=== PATIENT | female | born 1955 | race Caucasian/White ===

== ENCOUNTER 2021-09-18 22:00 | Emergency (ER) | payer SELFPAY ==
[~2021-09-18] VITALS: Ht 157.5 cm; Wt 95.3 kg
[2021-09-18] MEDS ORDERED: ACETAMINOPHEN 500 MG TAB PO ONE (22:15)
[2021-09-19 02:09] VITALS: BP 115/55
== END 2021-09-19 02:10 | disposition home or self-care (01) ==
LOC: ER 22:00
DX: U07.1 COVID-19 (principal)
CPT/HCPCS: 36415; 87426

== ENCOUNTER 2021-09-21 13:02 | Inpatient (IN) | payer MEDICAID ==
[~2021-09-21] VITALS: Ht 160 cm; Wt 95.7 kg
[2021-09-21] MEDS ORDERED: ZINC SULFATE 220mg CAP or TAB PO ONE (13:15)
[2021-09-21] MEDS ORDERED: methylPREDNISolone SOD SUCC 125 MG/2 ML VL IV ONE (13:15)
[2021-09-21] MEDS ORDERED: CHOLECALCIFEROL (VITD3) 2,000 UNIT CAP/TAB PO ONE (13:15)
[2021-09-21] MEDS ORDERED: ASCORBIC ACID 500 MG TAB PO ONE (13:15)
[2021-09-21 15:11] LABS: Basophils # (auto) 0 10 ^3/uL (0-0.2); Basophils % (auto) 0.3 % (0.0-2.0); Eosinophils # (auto) 0 10 ^3/uL (0-0.8); Hematocrit 41.4 % (36.0-46.0); Hemoglobin 13.5 g/dL (12.2-16.2); Lymphocytes # (auto) 0.7 10 ^3/uL (0.4-5.4); Lymphocytes % (auto) 22.5 % (10.0-50.0); Mean Corpuscular Hemoglobin 26.1 pg (28.0-32.0); Mean Corpuscular Hgb Conc. 32.6 g/dL (32.0-36.0); Mean Corpuscular Volume 80.2 fL (80.0-100.0); Monocytes # (auto) 0.2 10 ^3/uL (0-1.3); Monocytes % (auto) 5.2 % (0.0-12.0); Neutrophils # (auto) 2.3 10 ^3/uL (1.6-8.6); Nucleated Red Blood Cells % 0.1 %; Red Blood Cells 5.17 10^6/uL (4.0-5.20); Red Cell Distribution Width 14.3 % (11.8-14.3); White Blood Cell 3.2 10^3/uL (4.4-10.8)
[2021-09-21 15:20] LABS: Calcium 8.1 mg/dL (8.5-10.1); Magnesium 2.9 mg/dL (1.6-2.6); Potassium 3.5 mmol/L (3.5-5.1)
[2021-09-21 15:29] LABS: Bilirubin, Total 0.4 mg/dL (0.2-1.0); CRP High Sensitivity 12.2 mg/dL (< 0.3); Total Protein 7.6 g/dL (6.4-8.2)
[2021-09-21] MEDS ORDERED: ACETAMINOPHEN 500 MG TAB PO PRN (17:30)
[2021-09-21] MEDS ORDERED: DOCUSATE SOD 100 MG CAP PO PRN (17:30)
[2021-09-21] MEDS ORDERED: SODIUM CHLORIDE 0.9% 1,000 ML IV SCH (17:30)
[2021-09-21] MEDS ORDERED: MORPHINE SULFATE INJECTION 2 MG/ML SYRG IV PRN ×2 (17:30)
[2021-09-21] MEDS ORDERED: LORazepam 0.5 MG TAB PO PRN (17:30)
[2021-09-21] MEDS ORDERED: REMDESIVIR PER PHARMACY 0 ML IV SCH (17:30)
[2021-09-21] MEDS ORDERED: NITROGLYCERIN 0.4 MG SL TAB SL PRN (17:30)
[2021-09-21] MEDS ORDERED: ACETAMINOPHEN 325 MG TAB PO PRN (17:30)
[2021-09-21] MEDS ORDERED: ONDANSETRON HCL 4 MG/2 ML VIAL IV PRN (17:30)
[2021-09-21] MEDS ORDERED: cefTRIAXone 1GM/50ML D5W 50 ML IV ONE (17:30)
[2021-09-21] MEDS ORDERED: hydrALAZINE HCL 20 MG/ML VL IV PRN (18:00)
[2021-09-21] MEDS ORDERED: DEXTROSE (50%) 50ML SYRG IV PRN (18:00)
[2021-09-21] MEDS: amLODIPine BESYLATE 5 MG TAB PO SCH (18:10)
[2021-09-21] MEDS: cefTRIAXone 1GM/50ML D5W 50 ML IV SCH (18:10)
[2021-09-21] MEDS ORDERED: FAMOTIDINE (10MG/ML) 2ML VL IV SCH ×2 (18:15→18:30)
[2021-09-21] MEDS ORDERED: REMDESIVIR 200 MG in NS 210ml LOADING DOSE ADULT IV ONE (20:00)
[2021-09-21 20:21] VITALS: BP 146/93
[2021-09-21 20:25] VITALS: BP 145/79
[2021-09-21 20:37] LABS: Cholesterol 113 mg/dL (< 200)
[2021-09-21 20:47] LABS: HDL Cholesterol 39 mg/dL (40-59); LDL Cholesterol 67 mg/dL (< 100); Triglycerides 89 mg/dL (< 150)
[2021-09-21] MEDS: ENOXAPARIN SOD 40 MG/0.4 ML SYRINGE SC SCH (22:12)
[2021-09-21] MEDS: AZITHROMYCIN 500MG/ 250ML 250 ML IV SCH (22:12)
[2021-09-21] MEDS: ACCU-CHEK COMFORT CURVE STRIP VI SCH (22:12)
[2021-09-21] MEDS: InsuLIN REG 1unit/0.01ml Soln (100units/ml) SC SCH (22:24)
[2021-09-21] MEDS: BUDESONIDE (INHALATION) 180 MCG IH IN SCH (22:25)
[2021-09-21] MEDS: ALBUTEROL SULF HFA 90MCG INH 200DOSE IN PRN (22:25)
[2021-09-22 05:30] VITALS: BP 142/76
[2021-09-22] MEDS: ALBUTEROL SULF HFA 90MCG INH 200DOSE IN PRN ×2 (05:43→22:46)
[2021-09-22] MEDS: BUDESONIDE (INHALATION) 180 MCG IH IN SCH ×2 (05:43→21:24)
[2021-09-22] MEDS: InsuLIN REG 1unit/0.01ml Soln (100units/ml) SC SCH ×4 (06:10→21:11)
[2021-09-22] MEDS: ACCU-CHEK COMFORT CURVE STRIP VI SCH ×4 (06:10→20:50)
[2021-09-22 06:29] LABS: Basophils # (auto) 0 10 ^3/uL (0-0.2); Eosinophils # (auto) 0 10 ^3/uL (0-0.8); Lymphocytes # (auto) 0.5 10 ^3/uL (0.4-5.4); Monocytes # (auto) 0.2 10 ^3/uL (0-1.3); Neutrophils # (auto) 1.4 10 ^3/uL (1.6-8.6); Nucleated Red Blood Cells % 0.3 %
[2021-09-22 06:32] LABS: Basophils % (auto) 0.1 % (0.0-2.0); Hematocrit 40.4 % (36.0-46.0); Hemoglobin 13.5 g/dL (12.2-16.2); Lymphocytes % (auto) 23.2 % (10.0-50.0); Mean Corpuscular Hemoglobin 26.7 pg (28.0-32.0); Mean Corpuscular Hgb Conc. 33.3 g/dL (32.0-36.0); Mean Corpuscular Volume 79.9 fL (80.0-100.0); Monocytes % (auto) 8.1 % (0.0-12.0); Neutrophils % (auto) 68.6 % (37.0-80.0); Red Blood Cells 5.05 10^6/uL (4.0-5.20); Red Cell Distribution Width 14.4 % (11.8-14.3); White Blood Cell 2.1 10^3/uL (4.4-10.8)
[2021-09-22 06:51] LABS: Potassium 3.8 mmol/L (3.5-5.1)
[2021-09-22 06:58] LABS: Albumin 2.7 g/dL (3.4-5.0); BUN/Creatinine Ratio 16.5; Calcium 7.9 mg/dL (8.5-10.1)
[2021-09-22 07:00] LABS: Bilirubin, Total 0.3 mg/dL (0.2-1.0); Total Protein 6.5 g/dL (6.4-8.2)
[2021-09-22 09:00] VITALS: BP 146/81
[2021-09-22] MEDS: DexAMETHasone SOD PHOS 10MG/1ML VIAL INJ IV SCH (10:11)
[2021-09-22] MEDS: ASCORBIC ACID 1,000 MG TAB PO SCH (10:11)
[2021-09-22] MEDS: FAMOTIDINE (10MG/ML) 2ML VL IV SCH ×2 (10:11→20:49)
[2021-09-22] MEDS: ZINC SULFATE 220mg CAP or TAB PO SCH (10:11)
[2021-09-22] MEDS: CHOLECALCIFEROL (VITD3) 2,000 UNIT CAP/TAB PO SCH (10:12)
[2021-09-22] MEDS: ENOXAPARIN SOD 40 MG/0.4 ML SYRINGE SC SCH ×2 (10:12→21:02)
[2021-09-22 13:00] VITALS: BP 148/89
[2021-09-22] MEDS ORDERED: IVERMECTIN 3 MG TAB PO ONE (13:00)
[2021-09-22] MEDS ORDERED: FUROSEMIDE 20 MG/2 ML VIAL IV ONE (13:00)
[2021-09-22] MEDS ORDERED: POTASSIUM CHL 10 Meq TABLET PO ONE (13:00)
[2021-09-22] MEDS ORDERED: REMDESIVIR 200 MG in NS 210ml LOADING DOSE ADULT IV ONE (15:00)
[2021-09-22] MEDS ORDERED: REMDESIVIR 100mg 100 MG in SODIUM CHL 0.9% 230 ML IV SCH (15:00)
[2021-09-22 17:00] VITALS: BP 138/78
[2021-09-22] MEDS: cefTRIAXone 1GM/50ML D5W 50 ML IV SCH (20:49)
[2021-09-22] MEDS: amLODIPine BESYLATE 5 MG TAB PO SCH (21:02)
[2021-09-22] MEDS: INSULIN LANTUS (GLARGINE) 1 /0.01ml (100units/ml) SC SCH (21:04)
[2021-09-22] MEDS: AZITHROMYCIN 500MG/ 250ML 250 ML IV SCH (22:00)
[2021-09-22 22:02] VITALS: BP 148/83
[2021-09-23 05:23] VITALS: BP 150/83
[2021-09-23] MEDS: InsuLIN REG 1unit/0.01ml Soln (100units/ml) SC SCH ×4 (06:07→22:04)
[2021-09-23] MEDS: ACCU-CHEK COMFORT CURVE STRIP VI SCH ×4 (06:07→20:56)
[2021-09-23 06:18] LABS: Basophils # (auto) 0 10 ^3/uL (0-0.2); Eosinophils # (auto) 0 10 ^3/uL (0-0.8); Lymphocytes # (auto) 0.8 10 ^3/uL (0.4-5.4)
[2021-09-23 06:20] LABS: Basophils % (auto) 0.2 % (0.0-2.0); Hematocrit 42.2 % (36.0-46.0); Lymphocytes % (auto) 15.5 % (10.0-50.0); Mean Corpuscular Hemoglobin 26.7 pg (28.0-32.0); Mean Corpuscular Hgb Conc. 33.1 g/dL (32.0-36.0); Mean Corpuscular Volume 80.6 fL (80.0-100.0); Monocytes # (auto) 0.3 10 ^3/uL (0-1.3); Monocytes % (auto) 6.2 % (0.0-12.0); Neutrophils % (auto) 78.1 % (37.0-80.0); Nucleated Red Blood Cells % 0.1 %; Red Blood Cells 5.24 10^6/uL (4.0-5.20); Red Cell Distribution Width 14.6 % (11.8-14.3); White Blood Cell 5.1 10^3/uL (4.4-10.8)
[2021-09-23 06:24] LABS: INR 1.01 (0.9-1.15)
[2021-09-23 06:27] LABS: Albumin 2.8 g/dL (3.4-5.0); Magnesium 3.3 mg/dL (1.6-2.6); Potassium 3.9 mmol/L (3.5-5.1)
[2021-09-23 06:43] LABS: BUN/Creatinine Ratio 25.5; Bilirubin, Total 0.3 mg/dL (0.2-1.0); CRP High Sensitivity 7.61 mg/dL (< 0.3); Total Protein 6.6 g/dL (6.4-8.2)
[2021-09-23 08:00] VITALS: BP 127/67
[2021-09-23] MEDS: ALBUTEROL SULF HFA 90MCG INH 200DOSE IN PRN ×2 (08:14→19:30)
[2021-09-23] MEDS: BUDESONIDE (INHALATION) 180 MCG IH IN SCH ×2 (08:14→19:30)
[2021-09-23] MEDS: FUROSEMIDE 20 MG/2 ML VIAL IV SCH (10:40)
[2021-09-23] MEDS: FAMOTIDINE (10MG/ML) 2ML VL IV SCH ×2 (10:40→20:55)
[2021-09-23] MEDS: DexAMETHasone SOD PHOS 10MG/1ML VIAL INJ IV SCH (10:40)
[2021-09-23] MEDS: ZINC SULFATE 220mg CAP or TAB PO SCH (10:41)
[2021-09-23] MEDS: POTASSIUM CHL 10 Meq TABLET PO SCH (10:41)
[2021-09-23] MEDS: CHOLECALCIFEROL (VITD3) 2,000 UNIT CAP/TAB PO SCH (10:42)
[2021-09-23] MEDS: IVERMECTIN 3 MG TAB PO SCH (10:42)
[2021-09-23] MEDS: ASCORBIC ACID 1,000 MG TAB PO SCH (10:42)
[2021-09-23] MEDS: ENOXAPARIN SOD 40 MG/0.4 ML SYRINGE SC SCH ×2 (10:44→20:56)
[2021-09-23 13:00] VITALS: BP 142/72
[2021-09-23] MEDS: REMDESIVIR 100mg 100 MG in SODIUM CHL 0.9% 230 ML IV SCH (15:22)
[2021-09-23 16:44] VITALS: BP 142/88
[2021-09-23] MEDS: HYDROcodone-ACET 5/325MG TAB PO PRN ×2 (17:32→22:09)
[2021-09-23] MEDS: cefTRIAXone 1GM/50ML D5W 50 ML IV SCH (20:54)
[2021-09-23 22:00] VITALS: BP 135/71
[2021-09-23] MEDS: amLODIPine BESYLATE 5 MG TAB PO SCH (22:00)
[2021-09-23] MEDS: AZITHROMYCIN 500MG/ 250ML 250 ML IV SCH (22:00)
[2021-09-23] MEDS: INSULIN LANTUS (GLARGINE) 1 /0.01ml (100units/ml) SC SCH (22:09)
[2021-09-24] VITALS (7 sets, daily range): BP systolic 114–160; BP diastolic 73–86
[2021-09-24] MEDS: ACCU-CHEK COMFORT CURVE STRIP VI SCH ×4 (06:24→21:22)
[2021-09-24] MEDS: InsuLIN REG 1unit/0.01ml Soln (100units/ml) SC SCH ×4 (06:25→21:21)
[2021-09-24] MEDS: ZINC SULFATE 220mg CAP or TAB PO SCH (10:00)
[2021-09-24] MEDS: IVERMECTIN 3 MG TAB PO SCH (10:00)
[2021-09-24] MEDS: DexAMETHasone SOD PHOS 10MG/1ML VIAL INJ IV SCH (10:00)
[2021-09-24] MEDS: FAMOTIDINE (10MG/ML) 2ML VL IV SCH ×2 (10:00→21:01)
[2021-09-24] MEDS: ASCORBIC ACID 1,000 MG TAB PO SCH (10:00)
[2021-09-24] MEDS: CHOLECALCIFEROL (VITD3) 2,000 UNIT CAP/TAB PO SCH (10:00)
[2021-09-24] MEDS: POTASSIUM CHL 10 Meq TABLET PO SCH (10:00)
[2021-09-24] MEDS: FUROSEMIDE 20 MG/2 ML VIAL IV SCH (10:00)
[2021-09-24] MEDS: ENOXAPARIN SOD 40 MG/0.4 ML SYRINGE SC SCH ×2 (10:00→21:01)
[2021-09-24] MEDS: ALBUTEROL SULF HFA 90MCG INH 200DOSE IN PRN ×2 (13:58→21:47)
[2021-09-24] MEDS: BUDESONIDE (INHALATION) 180 MCG IH IN SCH ×2 (13:58→21:47)
[2021-09-24] MEDS: REMDESIVIR 100mg 100 MG in SODIUM CHL 0.9% 230 ML IV SCH (14:50)
[2021-09-24] MEDS: HYDROcodone-ACET 5/325MG TAB PO PRN ×2 (14:50→21:09)
[2021-09-24] MEDS: cefTRIAXone 1GM/50ML D5W 50 ML IV SCH (20:10)
[2021-09-24] MEDS: amLODIPine BESYLATE 5 MG TAB PO SCH (21:00)
[2021-09-24] MEDS: AZITHROMYCIN 500MG/ 250ML 250 ML IV SCH (21:01)
[2021-09-24] MEDS: INSULIN LANTUS (GLARGINE) 1 /0.01ml (100units/ml) SC SCH (21:21)
[2021-09-25 05:00] VITALS: BP 158/81
[2021-09-25 05:41] LABS: Basophils # (auto) 0 10 ^3/uL (0-0.2); Eosinophils # (auto) 0 10 ^3/uL (0-0.8); Neutrophils # (auto) 1.8 10 ^3/uL (1.6-8.6); Nucleated Red Blood Cells % 0.1 %
[2021-09-25 05:43] LABS: Hematocrit 42.2 % (36.0-46.0); Hemoglobin 13.9 g/dL (12.2-16.2); Lymphocytes # (auto) 0.7 10 ^3/uL (0.4-5.4); Lymphocytes % (auto) 21.9 % (10.0-50.0); Mean Corpuscular Hemoglobin 26.5 pg (28.0-32.0); Mean Corpuscular Hgb Conc. 32.9 g/dL (32.0-36.0); Mean Corpuscular Volume 80.5 fL (80.0-100.0); Monocytes # (auto) 0.5 10 ^3/uL (0-1.3); Neutrophils % (auto) 60.1 % (37.0-80.0); Red Blood Cells 5.24 10^6/uL (4.0-5.20); Red Cell Distribution Width 14.3 % (11.8-14.3)
[2021-09-25] MEDS: ALBUTEROL SULF HFA 90MCG INH 200DOSE IN PRN ×2 (06:07→20:16)
[2021-09-25] MEDS: BUDESONIDE (INHALATION) 180 MCG IH IN SCH ×2 (06:07→19:25)
[2021-09-25 06:12] LABS: Albumin 2.7 g/dL (3.4-5.0); Potassium 3.8 mmol/L (3.5-5.1)
[2021-09-25 06:16] LABS: BUN/Creatinine Ratio 34.9; Bilirubin, Total 0.4 mg/dL (0.2-1.0); Total Protein 6.3 g/dL (6.4-8.2)
[2021-09-25] MEDS: InsuLIN REG 1unit/0.01ml Soln (100units/ml) SC SCH ×4 (06:28→22:13)
[2021-09-25] MEDS: ACCU-CHEK COMFORT CURVE STRIP VI SCH ×4 (06:29→22:14)
[2021-09-25 08:32] VITALS: BP 138/74
[2021-09-25] MEDS: FAMOTIDINE (10MG/ML) 2ML VL IV SCH ×2 (10:03→22:11)
[2021-09-25] MEDS: ZINC SULFATE 220mg CAP or TAB PO SCH (10:03)
[2021-09-25] MEDS: FUROSEMIDE 20 MG/2 ML VIAL IV SCH (10:03)
[2021-09-25] MEDS: POTASSIUM CHL 10 Meq TABLET PO SCH (10:03)
[2021-09-25] MEDS: IVERMECTIN 3 MG TAB PO SCH (10:04)
[2021-09-25] MEDS: CHOLECALCIFEROL (VITD3) 2,000 UNIT CAP/TAB PO SCH (10:04)
[2021-09-25] MEDS: ASCORBIC ACID 1,000 MG TAB PO SCH (10:04)
[2021-09-25] MEDS: ENOXAPARIN SOD 40 MG/0.4 ML SYRINGE SC SCH ×2 (10:29→22:13)
[2021-09-25] MEDS: DexAMETHasone SOD PHOS 10MG/1ML VIAL INJ IV SCH (10:29)
[2021-09-25] MEDS ORDERED: IOHEXOL 350 MG/ML 100ML IJ ONE (12:00)
[2021-09-25] MEDS: REMDESIVIR 100mg 100 MG in SODIUM CHL 0.9% 230 ML IV SCH (14:40)
[2021-09-25 17:00] VITALS: BP 138/83
[2021-09-25] MEDS: cefTRIAXone 1GM/50ML D5W 50 ML IV SCH (21:15)
[2021-09-25 22:00] VITALS: BP 156/84
[2021-09-25] MEDS: amLODIPine BESYLATE 5 MG TAB PO SCH (22:10)
[2021-09-25] MEDS: AZITHROMYCIN 500MG/ 250ML 250 ML IV SCH (22:10)
[2021-09-25] MEDS: INSULIN LANTUS (GLARGINE) 1 /0.01ml (100units/ml) SC SCH (22:12)
[2021-09-26 05:00] VITALS: BP 130/68
[2021-09-26] MEDS: InsuLIN REG 1unit/0.01ml Soln (100units/ml) SC SCH ×4 (06:09→22:00)
[2021-09-26] MEDS: ACCU-CHEK COMFORT CURVE STRIP VI SCH ×4 (06:09→22:45)
[2021-09-26 07:03] LABS: BUN/Creatinine Ratio 30.1; Potassium 4.1 mmol/L (3.5-5.1)
[2021-09-26] MEDS: BUDESONIDE (INHALATION) 180 MCG IH IN SCH ×2 (08:57→22:05)
[2021-09-26] MEDS: ALBUTEROL SULF HFA 90MCG INH 200DOSE IN PRN ×2 (08:57→22:05)
[2021-09-26 09:00] VITALS: BP 131/74
[2021-09-26] MEDS: DexAMETHasone SOD PHOS 10MG/1ML VIAL INJ IV SCH (10:07)
[2021-09-26] MEDS: POTASSIUM CHL 10 Meq TABLET PO SCH (10:08)
[2021-09-26] MEDS: CHOLECALCIFEROL (VITD3) 2,000 UNIT CAP/TAB PO SCH (10:08)
[2021-09-26] MEDS: FAMOTIDINE (10MG/ML) 2ML VL IV SCH ×2 (10:08→22:47)
[2021-09-26] MEDS: ZINC SULFATE 220mg CAP or TAB PO SCH (10:08)
[2021-09-26] MEDS: ASCORBIC ACID 1,000 MG TAB PO SCH (10:08)
[2021-09-26] MEDS: ENOXAPARIN SOD 40 MG/0.4 ML SYRINGE SC SCH ×2 (10:08→22:46)
[2021-09-26] MEDS: IVERMECTIN 3 MG TAB PO SCH (10:08)
[2021-09-26] MEDS: FUROSEMIDE 20 MG/2 ML VIAL IV SCH (10:08)
[2021-09-26] MEDS ORDERED: PNEUMOCOCCAL VACC POLYS 25 MCG/0.5 ML VIAL IM ONE (12:00)
[2021-09-26] MEDS ORDERED: INFLUENZA QUAD 2021-2022 0.5 ML SYRG IM ONE (12:00)
[2021-09-26 13:00] VITALS: BP 146/89
[2021-09-26] MEDS: REMDESIVIR 100mg 100 MG in SODIUM CHL 0.9% 230 ML IV SCH (14:11)
[2021-09-26 16:44] VITALS: BP 144/88
[2021-09-26] MEDS: HYDROcodone-ACET 5/325MG TAB PO PRN (20:29)
[2021-09-26] MEDS: cefTRIAXone 1GM/50ML D5W 50 ML IV SCH (20:30)
[2021-09-26 22:00] VITALS: BP 137/96
[2021-09-26] MEDS: amLODIPine BESYLATE 5 MG TAB PO SCH (22:46)
[2021-09-26] MEDS: INSULIN LANTUS (GLARGINE) 1 /0.01ml (100units/ml) SC SCH (22:49)
[2021-09-27 05:00] VITALS: BP 158/75
[2021-09-27] MEDS: ACCU-CHEK COMFORT CURVE STRIP VI SCH ×4 (06:23→21:55)
[2021-09-27] MEDS: InsuLIN REG 1unit/0.01ml Soln (100units/ml) SC SCH ×4 (06:23→22:00)
[2021-09-27] MEDS: ALBUTEROL SULF HFA 90MCG INH 200DOSE IN PRN ×2 (06:29→22:18)
[2021-09-27] MEDS: BUDESONIDE (INHALATION) 180 MCG IH IN SCH ×2 (06:30→22:18)
[2021-09-27 06:48] LABS: Basophils # (auto) 0.1 10 ^3/uL (0-0.2); Basophils % (auto) 1.3 % (0.0-2.0); Eosinophils # (auto) 0 10 ^3/uL (0-0.8); Eosinophils % (auto) 0.1 % (0.0-7.0); Hematocrit 43.2 % (36.0-46.0); Hemoglobin 13.9 g/dL (12.2-16.2); Lymphocytes # (auto) 0.5 10 ^3/uL (0.4-5.4); Lymphocytes % (auto) 9.6 % (10.0-50.0); Mean Corpuscular Hemoglobin 26.1 pg (28.0-32.0); Mean Corpuscular Hgb Conc. 32.3 g/dL (32.0-36.0); Mean Corpuscular Volume 80.8 fL (80.0-100.0); Monocytes # (auto) 0.5 10 ^3/uL (0-1.3); Monocytes % (auto) 10.8 % (0.0-12.0); Neutrophils # (auto) 3.9 10 ^3/uL (1.6-8.6); Neutrophils % (auto) 78.2 % (37.0-80.0); Nucleated Red Blood Cells % 0.3 %; Red Blood Cells 5.34 10^6/uL (4.0-5.20); Red Cell Distribution Width 14.4 % (11.8-14.3)
[2021-09-27 07:04] LABS: Potassium 4.2 mmol/L (3.5-5.1)
[2021-09-27 07:18] LABS: CRP High Sensitivity 2.45 mg/dL (< 0.3); Magnesium 2.8 mg/dL (1.6-2.6)
[2021-09-27 08:41] VITALS: BP 135/70
[2021-09-27] MEDS: CHOLECALCIFEROL (VITD3) 2,000 UNIT CAP/TAB PO SCH (09:53)
[2021-09-27] MEDS: ASCORBIC ACID 1,000 MG TAB PO SCH (09:54)
[2021-09-27] MEDS: IVERMECTIN 3 MG TAB PO SCH (09:54)
[2021-09-27] MEDS: ZINC SULFATE 220mg CAP or TAB PO SCH (09:54)
[2021-09-27] MEDS: POTASSIUM CHL 10 Meq TABLET PO SCH (09:54)
[2021-09-27] MEDS: ENOXAPARIN SOD 40 MG/0.4 ML SYRINGE SC SCH ×2 (09:54→21:55)
[2021-09-27] MEDS: FAMOTIDINE (10MG/ML) 2ML VL IV SCH ×2 (09:54→21:54)
[2021-09-27] MEDS: DexAMETHasone SOD PHOS 10MG/1ML VIAL INJ IV SCH (09:54)
[2021-09-27] MEDS: FUROSEMIDE 20 MG/2 ML VIAL IV SCH (09:55)
[2021-09-27 11:33] VITALS: BP 135/70
[2021-09-27 12:49] VITALS: BP 133/75
[2021-09-27] MEDS: HYDROcodone-ACET 5/325MG TAB PO PRN (15:54)
[2021-09-27 17:00] VITALS: BP 142/80
[2021-09-27] MEDS: cefTRIAXone 1GM/50ML D5W 50 ML IV SCH (21:00)
[2021-09-27] MEDS: amLODIPine BESYLATE 5 MG TAB PO SCH (21:55)
[2021-09-27 22:00] VITALS: BP 115/47
[2021-09-27] MEDS: INSULIN LANTUS (GLARGINE) 1 /0.01ml (100units/ml) SC SCH (22:03)
[2021-09-28 04:47] VITALS: BP 170/91
[2021-09-28] MEDS: ALBUTEROL SULF HFA 90MCG INH 200DOSE IN PRN (06:35)
[2021-09-28] MEDS: BUDESONIDE (INHALATION) 180 MCG IH IN SCH (06:35)
[2021-09-28] MEDS: ACCU-CHEK COMFORT CURVE STRIP VI SCH ×2 (06:39→12:02)
[2021-09-28] MEDS: InsuLIN REG 1unit/0.01ml Soln (100units/ml) SC SCH ×2 (06:39→11:30)
[2021-09-28 08:54] VITALS: BP 148/89
[2021-09-28] MEDS: DexAMETHasone SOD PHOS 10MG/1ML VIAL INJ IV SCH (10:37)
[2021-09-28] MEDS: ENOXAPARIN SOD 40 MG/0.4 ML SYRINGE SC SCH (10:37)
[2021-09-28] MEDS: FAMOTIDINE (10MG/ML) 2ML VL IV SCH (10:37)
[2021-09-28] MEDS: POTASSIUM CHL 10 Meq TABLET PO SCH (10:37)
[2021-09-28] MEDS: ZINC SULFATE 220mg CAP or TAB PO SCH (10:37)
[2021-09-28] MEDS: CHOLECALCIFEROL (VITD3) 2,000 UNIT CAP/TAB PO SCH (10:38)
[2021-09-28] MEDS: ASCORBIC ACID 1,000 MG TAB PO SCH (10:38)
[2021-09-28] MEDS: FUROSEMIDE 20 MG/2 ML VIAL IV SCH (10:52)
[2021-09-28 12:45] VITALS: BP 153/83
[2021-09-28 15:46] VITALS: BP 148/89
== END 2021-09-28 17:43 | disposition home or self-care (01) | DRG 871 ==
LOC: EDUNIT# 13:02 → EDBD 13:02 → ER 13:02 → TELE 17:32 → TELE-EAST 20:16
PROVIDERS: ADMIT Family Medicine; ATTEND Internal Medicine
PROC: XW033E5 Introduction of Remdesivir Anti-infective into Peripheral Vein, Percutaneous Approach, New Technology Group 5 (ICD-10-PCS; principal; 2021-09-22)
DX: A41.89 Other specified sepsis (principal); U07.1 COVID-19; J12.82 Pneumonia due to coronavirus disease 2019; J96.01 Acute respiratory failure with hypoxia; N17.0 Acute kidney failure with tubular necrosis; E66.9 Obesity, unspecified; R65.20 Severe sepsis without septic shock; E11.9 Type 2 diabetes mellitus without complications; I10 Essential (primary) hypertension; E55.9 Vitamin D deficiency, unspecified; R74.01 Elevation of levels of liver transaminase levels; R79.89 Other specified abnormal findings of blood chemistry; Z91.19 Patient's noncompliance with other medical treatment and regimen; Z80.9 Family history of malignant neoplasm, unspecified; Z68.39 Body mass index [BMI] 39.0-39.9, adult
CPT/HCPCS: 36415; 36600; 71045; 71275; 80048; 80053; 80061; 82306; 82728; 82805; 82962; 83036; 83605; 83615; 83735; 84132; 84443; 84484; 85025; 85379; 85610; 86141; 87040; 87426; 93971; 94640; 96365; 96372; 96375; 99291; G0378; J0696; J1100; J1815; J3490

== ENCOUNTER 2021-10-07 14:58 | Emergency (ER) | payer SELFPAY ==
[~2021-10-07] VITALS: Ht 157.5 cm; Wt 93.9 kg
[2021-10-07 16:13] LABS: Basophils # (auto) 0 10 ^3/uL (0-0.2); Basophils % (auto) 0.7 % (0.0-2.0); Eosinophils # (auto) 0.1 10 ^3/uL (0-0.8); Eosinophils % (auto) 2.1 % (0.0-7.0); Hematocrit 42.3 % (36.0-46.0); Lymphocytes # (auto) 1.2 10 ^3/uL (0.4-5.4); Lymphocytes % (auto) 18.5 % (10.0-50.0); Mean Corpuscular Hgb Conc. 33.2 g/dL (32.0-36.0); Mean Corpuscular Volume 81.5 fL (80.0-100.0); Monocytes # (auto) 0.6 10 ^3/uL (0-1.3); Monocytes % (auto) 8.6 % (0.0-12.0); Neutrophils # (auto) 4.5 10 ^3/uL (1.6-8.6); Neutrophils % (auto) 70.1 % (37.0-80.0); Red Blood Cells 5.19 10^6/uL (4.0-5.20); Red Cell Distribution Width 14.9 % (11.8-14.3); White Blood Cell 6.4 10^3/uL (4.4-10.8)
[2021-10-07 16:24] LABS: Albumin 3.1 g/dL (3.4-5.0); Calcium 9.4 mg/dL (8.5-10.1)
[2021-10-07 16:33] LABS: BUN/Creatinine Ratio 9.7; Bilirubin, Total 0.2 mg/dL (0.2-1.0); Total Protein 7.7 g/dL (6.4-8.2)
[2021-10-07 21:21] VITALS: BP 151/78
== END 2021-10-07 16:58 | disposition home or self-care (01) ==
LOC: ER 14:58
DX: I10 Essential (primary) hypertension (principal)
CPT/HCPCS: 36415; 80053; 84484; 85025; 93005

== ENCOUNTER 2025-09-20 09:27 | Inpatient (IN) | payer BC, MEDICARE ==
[~2025-09-20] VITALS: Ht 157.5 cm; Wt 89.3 kg
--- NOTE | 2025-09-20 09:43 | ED.PDOC ---
General HPI Comments This is a 69 year old female presenting to the ED with chief complaint of flank pain. Patient reports that she has been experiencing right sided flank pain sin Wednesday. Patient relays that she receives Chemotherapy for breast/bone cancer at [facility], which has been putting a strain on her kidneys. Patient states that she called [facility] and was advised to take Tylenol, but if no relief had been noted, she was advised to come to the ED for further evaluation. Patient denies any N/V/D, dysuria, hematuria, dizziness, fever, or chills. Chief Complaint: Flank Pain Time Seen by MD: 09:44 Primary Care Provider: VIC PMD Reviewed notes: Nurses Notes, Medications, Allergies Allergies: Coded Allergies: NO KNOWN ALLERGIES (Unverified , 09/18/21) Home Meds No Active Prescriptions or Reported Meds Information Source: Patient Mode of Arrival: Ambulatory Severity: Moderate Timing: Days Duration: Since onset Prehospital treatment: None Onset: Other (S/P Chemotherapy) Symptoms: None History of: None Location: (R) Flank Past Medical History PAST MEDICAL HISTORY: Cancer (Breast/Bone cancer), HTN Surgical History: Denies all surgeries BAGMAN/WOMAN History: Denies all BAGMAN/WOMAN Hx Family History Family History: Family hx of Cancer Social History Smoker: Non-Smoker Alcohol: Rarely Drugs: Denies Drug Use Lives In: Home Constitutional: denies: chills, diaphoresis, fatigue, fever, malaise, sweats, weakness, others EENTM: denies: blurred vision, double vision, ear bleeding, ear discharge, ear drainage, ear pain, ear ringing, eye pain, eye redness, hearing loss, mouth pain, mouth swelling, nasal discharge, nose bleeding, nose congestion, nose pain, photophobia, tearing, throat pain, throat swelling, voice changes, others Respiratory: denies: cough, hemoptysis, orthopnea, SOB at rest, shortness of breath, SOB with excertion, stridor, wheezing, others Cardiovascular: denies: chest pain, dizzy spells, diaphoresis, Dyspnea on exertion, edema, irregular heart beat, left arm pain, lightheadedness, palpitations, PND, syncope, others Gastrointestinal: denies: abdomen distended, abdominal pain, blood streaked bowels, constipated, diarrhea, dysphagia, difficulty swallowing, hematemesis, melena, nausea, poor appetite, poor fluid intake, rectal bleeding, rectal pain, vomiting, others Genitourinary: reports: flank pain; denies: abnormal vagina bleeding, burning, dyspareunia, dysuria, frequency, hematuria, incontinence, pain, , vagina discharge, urgency, others Neurological: denies: dizziness, fainting, headache, left sided numbness, left sided weakness, numbness, paresthesia, pre-existing deficit, right sided numbness, right sided weakness, seizure, speech problems, tingling, tremors, weakness, others Musculoskeletal: denies: back pain, gout, joint pain, joint swelling, muscle pain, muscle stiffness, neck pain, others Integumetry: denies: bruises, change in color, change in hair/nails, dryness, laceration, lesions, lumps, rash, wounds, others Allergic/Immunocompromised: denies: Difficulty Healing, Frequent Infections, Hives, Itching, others Hematologic/Lymphatic: denies: anemia, blood clots, easy bleeding, easy bruising, swollen glands, others Endocrine: denies: excessive hunger, excessive sweating, excessive thirst, excessive urination, flushing, intolerance to cold, intolerance to heat, unexplained weight gain, unexplained weight loss, others Psychiatric: denies: anxiety, bipolar disorder, depression, hopeless, panic disorder, schizophrenia, sleepless, suicidal, others All Other Systems: Reviewed and Negative Physical Exam General Appearance: Moderate Distress HEENT: Normal ENT Inspection, Pharynx Normal, TMs Normal Neck: Full Range of Motion, Non-Tender, Normal, Normal Inspection Respiratory: Chest Non-Tender, Lungs Clear, No Accessory Muscle Use, No Respiratory Distress, Normal Breath Sounds Cardiovascular: No Edema, No JVD, No Murmur, No Gallop, Normal Peripheral Pulses, Regular Rate/Rhythm Breast Exam: Deferred Gastrointestinal: No Organomegaly, No Pulsatile Mass, Normal Bowel Sounds, RUQ, Soft, Tenderness Genitalia: Deferred Pelvic: Deferred Rectal: Deferred Extremities: No calf tenderness, Normal capillary refill, Normal inspection, Normal range of motion, Non-tender, No pedal edema Musculoskeletal : Apperance: Normal Neurologic: Alert, machine accountant II-XII nml as Tested, No Motor Deficits, Normal Affect, Normal Mood, No Sensory Deficits Cerebellar Function: Normal Reflexes: Normal Skin: Dry, Normal Color, Warm Lymphatic: No Adenopathy Was a procedure done? Was a procedure done?: No Differential Diagnosis Kidney stone (Female): Renal failure, Urolithiasis Kidney stone (Male): Cholelithiasis X-Ray, Labs, Meds, VS Vital Signs Date Time Temp Pulse Resp B/P (MAP) Pulse Ox O2 Delivery O2 Flow Rate FiO2 09/20/25 10:36 84 16 170/85 09/20/25 10:17 98.9 80 16 182/94 (123) 98.9 09/20/25 10:17 Room Air* 0 21 09/20/25 09:29 98.3 79 18 115/91 96 98.3 Lab Test 09/20/25 10:48 09/20/25 09:51 Range/Units Urine Color Pending Urine Clarity Pending Urine pH Pending Urine Specific [place] Pending Urine Protein Pending Urine Ketones Pending Urine Blood Pending Urine Nitrite Pending Urine Bilirubin Pending Urine Urobilinogen Pending Urine Leukocyte Esterase Pending Urine RBC Pending Urine Microscopic WBC Pending Urine Squamous Epithelial Cells Pending Urine Bacteria Pending Urine Glucose Pending White Blood Count 4.1 L 4.4-10.8 10^3/uL Red Blood Count 4.08 4.0-5.20 10^6/uL Hemoglobin 12.9 12.2-16.2 g/dL Hematocrit 38.7 36.0-46.0 % Mean Corpuscular Volume 94.9 80.0-100.0 fL Mean Corpuscular Hemoglobin 31.7 28.0-32.0 pg Mean Corpuscular Hemoglobin Concent 33.5 32.0-36.0 g/dL Red Cell Distribution Width 14.6 H 11.8-14.3 % Platelet Count 307 140-450 10^3/uL Mean Platelet Volume 8.0 6.9-10.8 fL Neutrophils (%) (Auto) 46.9 37.0-80.0 % Lymphocytes (%) (Auto) 37.3 10.0-50.0 % Monocytes (%) (Auto) 7.8 0.0-12.0 % Eosinophils (%) (Auto) 7.4 H 0.0-7.0 % Basophils (%) (Auto) 0.6 0.0-2.0 % Neutrophils # (Auto) 1.9 1.6-8.6 10 ^3/uL Lymphocytes # (Auto) 1.5 0.4-5.4 10 ^3/uL Monocytes # (Auto) 0.3 0-1.3 10 ^3/uL Eosinophils # (Auto) 0.3 0-0.8 10 ^3/uL Basophils # (Auto) 0 0-0.2 10 ^3/uL Nucleated Red Blood Cells 0.1 % Sodium Level 143 136-145 mmol/L Potassium Level 3.7 3.5-5.1 mmol/L Chloride Level 108 H 98-107 mmol/L Carbon Dioxide Level 26 20-31 mmol/L Anion Gap 9 5-15 Blood Urea Nitrogen 22 9-23 mg/dL Creatinine 1.78 H 0.550-1.02 mg/dL Glomerular Filtration Rate Calc 31 >90 mL/min BUN/Creatinine Ratio 12.4 10.0-20.0 Serum Glucose 100 74-106 mg/dL Calcium Level 9.6 8.7-10.4 mg/dL Current Medications Medications (Trade) Dose Ordered Sig/Kedar Route Start Time Stop Time Status Last Admin Ondansetron HCl (Zofran) 4 mg ONCE ONCE IV 09/20/25 09:45 09/20/25 09:46 DC 09/20/25 10:33 Sodium Chloride 1,000 ml @ 1,000 mls/hr Q1H ONCE IVB 09/20/25 09:45 09/20/25 10:44 DC 09/20/25 10:33 Morphine Sulfate 4 mg ONCE ONCE IV 09/20/25 09:45 09/20/25 09:46 DC 09/20/25 10:36 CT Abd/Pel indicates: 1. No hydronephrosis or renal calculi. 2. Cholelithiasis without evidence of acute cholecystitis. 3. Questionable focal wall thickening at the sigmoid colon. Recommend follow-up with colonoscopy as an underlying mass cannot be excluded. 4. Colonic diverticulosis without evidence of diverticulitis. IV Hep-Lock was established The patient was given a 1 L bolus of normal saline The patient was given morphine 4 mg IV push for the pain The patient was given Zofran 4 mg IV push for the nausea The CBC and chemistry panel are within normal limits except for creatinine of 1.78 At this time, the patient is being admitted The patient understands and agrees with the management. Images Reviewed?: Images reviewed and evaluated by me Time of 1ST Reevaluation: 11:16 Reevaluation 1ST: Unchanged Patient Education/Counseling: Diagnosis, Treatment, Prognosis Family Education/Counseling: No Family Present SEPSIS Sepsis Screen Date sepsis recognized/suspect: Sep 20, 2025 Time Sepsis recognized/suspect: 929 Recent Procedure: No On Antibiotic Therapy: No Respiratory Rate >20: No Heart Rate >90: No Temp<36 C (96.8 F) or >38.3 C: No SBP <90 or MAP <65 mmHG: No New Acute Mental Status Change: No Is the patient on CPAP, BIPAP,: No Physician Orders Urinalysis (09/20/25 09:42) Ct Ab Pel Wo Con-No Oral Or Iv (09/20/25 09:42) Heplock Iv (09/20/25 09:42) Vital Signs Date Time Temp Pulse Resp B/P (MAP) Pulse Ox O2 Delivery O2 Flow Rate FiO2 09/20/25 10:36 84 16 170/85 09/20/25 10:17 98.9 80 16 182/94 (123) 98.9 09/20/25 10:17 Room Air* 0 21 09/20/25 09:29 98.3 79 18 115/91 96 98.3 Laboratory Tests Test 09/20/25 09:51 White Blood Count 4.1 10^3/uL (4.4-10.8) L Medications Medications Dose Ordered Sig/Kedar Route Start Time Stop Time Status Last Admin Dose Admin Morphine Sulfate 4 mg ONCE ONCE IV 09/20/25 09:45 09/20/25 09:46 DC 09/20/25 10:36 Ondansetron HCl 4 mg ONCE ONCE IV 09/20/25 09:45 09/20/25 09:46 DC 09/20/25 10:33 Sodium Chloride 1,000 ml @ 1,000 mls/hr Q1H ONCE IVB 09/20/25 09:45 09/20/25 10:44 DC 09/20/25 10:33 Departure 1 Departure Time of Disposition: 11:17 Impression: Primary Impression: Intractable abdominal pain Additional Impressions: Cholelithiasis Qualified Codes: K80.20 - Calculus of gallbladder without cholecystitis without obstruction Status post chemotherapy Disposition: ADMITTED INPATIENT Admit to: Med Surg Condition: Fair e-Prescriptions No Active Prescriptions or Reported Meds Critical Care Note Critical Care Time?: No Stability Stability form required: Yes Unstable for transfer: ED Physician Assesment (Clinical assesment) Heart Score Heart Score: Heart Score Response (Comments) Value History N/A 0 EKG N/A 0 Age N/A 0 Risk Factors N/A 0 Troponin N/A 0 Total 0 I personally scribed for ZULAY JACOBO MD ([email or web address]) on 09/20/25 at 09:43. Electronically submitted by Sunday Mondragon ([email or web address]). I personally scribed for ZULAY JACOBO MD ([email or web address]) on 09/20/25 at 09:47. Electronically submitted by Sunday Mondragon ([email or web address]). I personally scribed for ZULAY JACOBO MD ([email or web address]) on 09/20/25 at 11:14. Electronically submitted by Sunday Mondragon ([email or web address]). ZULAY JACOBO MD Sep 20, 2025 09:43
[2025-09-20 10:08] LABS: Hematocrit 38.7 % (36.0-46.0); Hemoglobin 12.9 g/dL (12.2-16.2); Mean Corpuscular Hemoglobin 31.7 pg (28.0-32.0); Mean Corpuscular Volume 94.9 fL (80.0-100.0); Nucleated Red Blood Cells % 0.1 %
[2025-09-20 10:17] LABS: Potassium 3.7 mmol/L (3.5-5.1); Sodium 143 mmol/L (136-145)
[2025-09-20 10:18] LABS: Anion Gap 9 (5-15); Carbon Dioxide 26 mmol/L (20-31)
[2025-09-20 10:19] LABS: Calcium 9.6 mg/dL (8.7-10.4); Chloride 108 mmol/L (98-107)
[2025-09-20 10:24] LABS: BUN/Creatinine Ratio 12.4 (10.0-20.0); Blood Urea Nitrogen 22 mg/dL (9-23); Glucose 100 mg/dL (74-106)
[2025-09-20] MEDS: ONDANSETRON HCL 4 MG/2 ML VIAL IV ONE (10:33)
[2025-09-20] MEDS: SODIUM CHLORIDE 0.9% 1,000 ML IVB ONE (10:33)
[2025-09-20] MEDS: MORPHINE SULFATE 4 MG/ML SYR/VIAL IV ONE (10:36)
--- NOTE | 2025-09-20 10:53 | DVH ---
EXAM DESCRIPTION: CT CT AB PEL WO CON-NO ORAL OR IV CLINICAL HISTORY: right flank pain COMPARISON: CT CHEST ABDOMEN PELVIS WO CONTRAST on DOS: 01/10/25 TECHNIQUE: CT abdomen and pelvis without IV contrast was performed. Coronal and sagittal MPR images were generated.CTDI/ DLP = 16.75 / 789.84 Dose reduction technique with one or more of the following methods was performed: Automated exposure control, adjustment of the mA and/or kV according to patient size, use of iterative reconstruction technique FINDINGS: Lower chest: Clear lung bases. Liver: Homogenous in attenuation. . Biliary: Small gallstones layering in the gallbladder. No definite gallbladder wall thickening or pericholecystic fluid. No biliary ductal dilatation. Pancreas: No fat stranding or focal lesion. Spleen: Normal in size.. Adrenal glands: No nodularity. Kidneys: No nephrolithiasis. No hydroureteronephrosis. Small fat density lesion at the lower pole of the right kidney in the cortex which may represent invaginating perinephric fat or a small angiomyolipoma. Bladder: No bladder wall thickening. Reproductive organs: Normal. Bowel: Questionable focal wall thickening at the sigmoid colon which may be accentuated by underdistention. Colonic diverticulosis without evidence of diverticulitis. Normal appendix.. Peritoneum: No free fluid. No free air. Vessels: Normal caliber abdominal aorta. . Lymph nodes: No suspicious lymph nodes. Soft tissues: Unremarkable. . Osseous structures: No acute fracture or subluxation. No suspicious osseous lesions. Degenerative changes of the visualized thoracolumbar spine. IMPRESSION: 1. No hydronephrosis or renal calculi. 2. Cholelithiasis without evidence of acute cholecystitis. 3. Questionable focal wall thickening at the sigmoid colon. Recommend follow-up with colonoscopy as an underlying mass cannot be excluded. 4. Colonic diverticulosis without evidence of diverticulitis.
[2025-09-20 11:17] LABS: Urine Protein, UAD Negative (Negative)
--- NOTE | 2025-09-20 13:24 | DVHHP2 ---
History of Present Illness Reason for Visit: right flank pain History of Present Illness 69-year-old female with a past medical history of breast cancer with metastasis to bone, hypertension, and no prior surgical history presents with severe right- sided abdominal pain. She reports being followed at [facility] and received he r last cycle of chemotherapy this past , administered every three weeks. She states she was advised by her nurse to take Tylenol and present to the ER if her pain did not improve within two days. She followed this advice, but the pain worsened overnight, prompting her visit. She denies chest pain, shortness of breath, hematuria, rectal pain, or rectal bleeding. She recalls having a prior workup at [facility] in 2022, which was reportedly negative for cancer, despite having a tumor on the left side of her abdomen that fell out spontaneously. She also has a history of abnormal colonic findings including focal wall thickening and sigmoid abnormalities, but a previous colonoscopy at [facility] was reportedly non-conclusive. In the ED, CT abdomen/pelvis showed no hydronephrosis, gallstones without cholecystitis, and diverticulosis without evidence of diverticulitis. There was questionable focal wall thickening at the sigmoid colon with recommendation for follow-up colonoscopy to rule out an underlying mass patient states she had a follow up for this problem in the past in 2022 they found nothing concerning. When evaluating patient's labs and imaging CBC is unremarkable creatinine was found to be 1.78 otherwise BNP unremarkable UA was negative we will admit to medicine for further workup and care Past Medical History See HPI above Past Surgical History See HPI above Family History Reviewed, non-contributory to the management of this case. Past Social History The patient lives at home, denies smoking, alcohol or illicit drugs abuse. Review of Systems Constitutional: No: Fever, Chills, Sweats, Weakness, Malaise, Other Eyes: No: Pain, Vision change, Conjunctivae inflammation, Eyelid inflammation, Other, Redness ENT: No: Ear pain, Ear discharge, Nose pain, Nose discharge, Nose congestion, Mouth pain, Mouth swelling, Throat pain, Throat swelling, Other Respiratory: No: Cough, Dry, Shortness of breath, SOB with excertion, Wheezing, Hemoptysis, Pleuritic Pain, Sputum, Wheezing, Other Cardiovascular: No: Chest Pain, Palpitations, Orthopnea, Paroxysmal Noc. Dyspn ea, Edema, Lt Headedness, Other Gastrointestinal: Nausea, Vomiting, Abdominal Pain; No: Diarrhea, Constipation, Melena, Hematochezia, Other Genitourinary: No Dysuria, No Frequency, No Incontinence, No Hematuria, No Retention, No Other Musculoskeletal: No: other, neck pain, shoulder pain, arm pain, back pain, hand pain, leg pain, foot pain Skin: No: Rash, Lesions, Jaundice, Bruising, Other Neurological: No: Weakness, Numbness, Incoordination, Change in speech, Confusion, Seizures, Other Allergies: Coded Allergies: NO KNOWN ALLERGIES (Unverified , 09/18/21) Exam Vital Signs Vital Signs Date Time Temp Pulse Resp B/P (MAP) Pulse Ox O2 Delivery O2 Flow Rate FiO2 09/20/25 11:45 55 16 148/84 09/20/25 11:38 98.0 98 98.0 09/20/25 11:35 Room Air* 0 21 General Appearance: Alert, Oriented X3, Cooperative, No acute distress HEENT: Atraumatic, PERRLA, EOMI, Mucous membr. moist/pink Respiratory: Clear to auscultation Cardiovascular: Regular rate, Normal S1, Normal S2, No murmurs Abdominal: Normal bowel sounds, Soft, No tenderness, No hepatospenomegaly, No masses, Other (right flank tenderness) Extremities: No clubbing, No cyanosis, No edema, Normal pulses, No tenderness/swelling Skin: No rashes, No breakdown, No significant lesion Neuro: Normal gait, Normal speech, Strength at 5/5 X4 ext, Normal tone, Sensation intact, Cranial nerves 3-12 NL Psych/Mental Status: Mental status NL, Mood NL Labs/Xrays ct abd pelvis 1. No hydronephrosis or renal calculi. 2. Cholelithiasis without evidence of acute cholecystitis. 3. Questionable focal wall thickening at the sigmoid colon. Recommend follow-up with colonoscopy as an underlying mass cannot be excluded. 4. Colonic diverticulosis without evidence of diverticulitis. Labs Test 09/20/25 10:48 09/20/25 09:51 Range/Units Urine Color Light-yellow Yellow Urine Clarity Clear Clear Urine pH 5.5 5.0-9.0 Urine Specific [place] 1.016 1.001-1.035 Urine Protein Negative Negative Urine Ketones Negative Negative Urine Blood Negative Negative /uL Urine Nitrite Negative Negative Urine Bilirubin Negative Negative Urine Urobilinogen Normal Negative mg/dL Urine Leukocyte Esterase Trace Negative /uL Urine RBC None seen 0 - 4 /hpf Urine Microscopic WBC 2 0-5 /HPF Urine Squamous Epithelial Cells None seen <5 /hpf Urine Bacteria None seen None Seen /hpf Urine Glucose Normal Normal mg/dL White Blood Count 4.1 L 4.4-10.8 10^3/uL Red Blood Count 4.08 4.0-5.20 10^6/uL Hemoglobin 12.9 12.2-16.2 g/dL Hematocrit 38.7 36.0-46.0 % Mean Corpuscular Volume 94.9 80.0-100.0 fL Mean Corpuscular Hemoglobin 31.7 28.0-32.0 pg Mean Corpuscular Hemoglobin Concent 33.5 32.0-36.0 g/dL Red Cell Distribution Width 14.6 H 11.8-14.3 % Platelet Count 307 140-450 10^3/uL Mean Platelet Volume 8.0 6.9-10.8 fL Neutrophils (%) (Auto) 46.9 37.0-80.0 % Lymphocytes (%) (Auto) 37.3 10.0-50.0 % Monocytes (%) (Auto) 7.8 0.0-12.0 % Eosinophils (%) (Auto) 7.4 H 0.0-7.0 % Basophils (%) (Auto) 0.6 0.0-2.0 % Neutrophils # (Auto) 1.9 1.6-8.6 10 ^3/uL Lymphocytes # (Auto) 1.5 0.4-5.4 10 ^3/uL Monocytes # (Auto) 0.3 0-1.3 10 ^3/uL Eosinophils # (Auto) 0.3 0-0.8 10 ^3/uL Basophils # (Auto) 0 0-0.2 10 ^3/uL Nucleated Red Blood Cells 0.1 % Sodium Level 143 136-145 mmol/L Potassium Level 3.7 3.5-5.1 mmol/L Chloride Level 108 H 98-107 mmol/L Carbon Dioxide Level 26 20-31 mmol/L Anion Gap 9 5-15 Blood Urea Nitrogen 22 9-23 mg/dL Creatinine 1.78 H 0.550-1.02 mg/dL Glomerular Filtration Rate Calc 31 >90 mL/min BUN/Creatinine Ratio 12.4 10.0-20.0 Serum Glucose 100 74-106 mg/dL Calcium Level 9.6 8.7-10.4 mg/dL SEPSIS Sepsis Screen Date sepsis recognized/suspect: Sep 20, 2025 Time Sepsis recognized/suspect: 1134 Recent Procedure: No On Antibiotic Therapy: No Respiratory Rate >20: No Heart Rate >90: No Temp<36 C (96.8 F) or >38.3 C: No SBP <90 or MAP <65 mmHG: No New Acute Mental Status Change: No Is the patient on CPAP, BIPAP,: No Physician Orders Ct Ab Pel Wo Con-No Oral Or Iv (09/20/25 09:42) Heplock Iv (09/20/25 09:42) Admit (09/20/25 13:19) Allergies (09/20/25 13:19) Code Status (09/20/25 13:19) 0.9% Ns 1000 Ml (09/20/25 13:30) Ondansetron Hcl (Zofran) (09/20/25 13:30) Docusate Sodium Capsule (Colace Capsule) (09/20/25 13:30) Enoxaparin Sodium (Lovenox) (09/21/25 10:00) Complete Blood Count (09/21/25 04:00) Comprehensive Metabolic Panel (09/21/25 04:00) Cardiac Diet-2gna,Lofat,Lochol (09/20/25 Lunch) Condition: Stable (09/20/25 13:19) BRP (09/20/25 13:19) Morphine Sulfate Injection (09/20/25 13:30) Sequential Compression Device (09/20/25 ) Nitroglycerin Sublingual (Ntrostat Subli (09/20/25 13:30) Stat Ekg For Chest Pain (09/20/25 13:19) Notify Md Of Changes From Base (09/20/25 13:19) Cost Accounting Clerk For 24 Hours (09/20/25 13:19) Emergency Dysrhythmia Protocol (09/20/25 13:19) Rhythm Strips Once Every Shift (09/20/25 13:19) Oxygen By Nasal Cannula (09/20/25 13:19) Get List Of Home Medications (09/20/25 13:19) Vital Signs Date Time Temp Pulse Resp B/P (MAP) Pulse Ox O2 Delivery O2 Flow Rate FiO2 09/20/25 11:45 55 16 148/84 09/20/25 11:38 98.0 55 16 148/84 (105) 98 98.0 09/20/25 11:35 97 Room Air* 0 21 09/20/25 11:06 55 16 148/84 09/20/25 10:36 84 16 170/85 09/20/25 10:17 98.9 80 16 182/94 (123) 98.9 09/20/25 10:17 Room Air* 0 21 09/20/25 09:29 98.3 79 18 115/91 96 98.3 Laboratory Tests Test 09/20/25 09:51 White Blood Count 4.1 10^3/uL (4.4-10.8) L Medications Medications Dose Ordered Sig/Kedar Route Start Time Stop Time Status Last Admin Dose Admin Morphine Sulfate 4 mg ONCE ONCE IV 09/20/25 09:45 09/20/25 09:46 DC 09/20/25 10:36 4 MG Ondansetron HCl 4 mg ONCE ONCE IV 09/20/25 09:45 09/20/25 09:46 DC 09/20/25 10:33 4 MG Sodium Chloride 1,000 ml @ 1,000 mls/hr Q1H ONCE IVB 09/20/25 09:45 09/20/25 10:44 DC 09/20/25 10:33 1,000 MLS/HR Assessment/Plan Assessment/Plan 69-year-old female with metastatic breast cancer and right-sided abdominal pain, admitted for pain control and further workup of possible colonic mass vs. post- chemo complications. acute Right lower quadrant abdominal pain, etiology unclear Pain likely multifactorial: chemo-related, musculoskeletal vs. colonic pathology CT abdomen shows diverticulosis, no diverticulitis, no hydronephrosis Pain control with scheduled Tylenol and PRN narcotics if needed morphine GI consult for colonoscopy follow-up due to focal wall thickening Monitor vitals and abdominal exam for progression acute Colonic wall thickening on imaging possible underlying mass CT impression: focal sigmoid wall thickening, mass not excluded GI follow-up for outpatient colonoscopy Consider tumor markers if not recently done History of metastatic breast cancer to bone Receiving chemotherapy at [facility] Last dose was , every 3 weeks Continue current oncology care coordination Monitor for neutropenia or treatment-related complications acute jaziel cont iv hydration for now Hypertension Continue home antihypertensives as tolerated Monitor blood pressure during admission chronic problems Breast cancer with bone metastases Hypertension History of colon pathology per pt Diverticulosis FEN / PPx Fluids: Maintain IV hydration Electrolytes: Monitor CMP Nutrition: Regular diet, advance as tolerated DVT Prophylaxis: SCDs GI Prophylaxis: PPI for stress ulcer prophylaxis Disposition Admit to medicine for pain control and GI evaluation Continue monitoring and supportive care Plan discussed with: Patient My Orders Orders - JOY WILD DNP Procedure Category Date Status Time Admit ADMIT 09/20/25 Transmitted 13:19 Allergies DAMIEN 09/20/25 Transmitted 13:19 Code Status CODE 09/20/25 Transmitted 13:19 0.9% Ns 1000 Ml PHA 09/20/25 Transmitted 13:30 Ondansetron Hcl PHA 09/20/25 Transmitted (Zofran) 13:30 Docusate Sodium PHA 09/20/25 Transmitted Capsule (Colace 13:30 Enoxaparin Sodium PHA 09/21/25 Transmitted (Lovenox) 10:00 Complete Blood Count LAB 09/21/25 Verified 04:00 Comprehensive LAB 09/21/25 Verified Metabolic Panel 04:00 Cardiac DIET 09/20/25 Transmitted Diet-2gna,Lofat,Lochol Lunch Condition: Stable DAMIEN 09/20/25 Transmitted 13:19 BRP DAMIEN 09/20/25 Transmitted 13:19 Morphine Sulfate PHA 09/20/25 Transmitted Injection 13:30 Sequential DAMIEN 09/20/25 Transmitted Compression Device Nitroglycerin PHA 09/20/25 Transmitted Sublingual (Ntrostat 13:30 Stat Ekg For Chest DAMIEN 09/20/25 Transmitted Pain 13:19 Notify Md Of Changes [facility] 09/20/25 Transmitted From Base 13:19 Cost Accounting Clerk For [facility] 09/20/25 Transmitted 24 Hours 13:19 Emergency Dysrhythmia [facility] 09/20/25 Transmitted Protocol 13:19 Rhythm Strips Once [facility] 09/20/25 Transmitted Every Shift 13:19 Oxygen By Nasal RT 09/20/25 Transmitted Cannula 13:19 Get List Of Home ORDERS 09/20/25 Transmitted Medications 13:19 Date of Service: Sep 20, 2025 Billing Provider: JOY WILD DNP Common Visit Codes: [id number] INP/OBS CARE (HIGH) JOY WILD DNP Sep 20, 2025 13:23
[2025-09-20] MEDS ORDERED: NITROGLYCERIN 0.4 MG SL TAB SL PRN (13:30)
[2025-09-20] MEDS ORDERED: DOCUSATE SOD 100 MG CAP PO PRN (13:30)
[2025-09-20] MEDS ORDERED: ONDANSETRON HCL 4 MG/2 ML VIAL IV PRN (13:30)
[2025-09-20] MEDS: SODIUM CHLORIDE 0.9% 1,000 ML IV SCH (14:36)
[2025-09-20] MEDS: MORPHINE SULFATE INJ 2 MG/ml SYRG IV PRN (16:47)
[2025-09-20] MEDS: MORPHINE SULFATE 4 MG/ML SYR/VIAL ONE (16:47)
[2025-09-20] MEDS: KETOROLAC TROMETH 30 MG/ML 1ML VIAL IV ONE (22:29)
[2025-09-20 23:15] VITALS: BP 140/59; PULSE 71; RESP 18; TEMP 97.7; O2SAT 94
[2025-09-20 23:45] VITALS: BP 140/59; PULSE 71; RESP 18; TEMP 97.7; O2SAT 94
[2025-09-21] VITALS (8 sets, daily range): BP systolic 101–174; BP diastolic 70–84; PULSE 60–92; RESP 16–18; TEMP 97.2–98.9; O2SAT 94–97
[2025-09-21] MEDS: HYDROmorphone HCL 2 MG/ML VL/or syr IV PRN (01:05)
[2025-09-21 05:27] LABS: Hematocrit 33.3 % (36.0-46.0); Hemoglobin 11.2 g/dL (12.2-16.2); Mean Corpuscular Hemoglobin 32.0 pg (28.0-32.0); Mean Corpuscular Volume 95.3 fL (80.0-100.0); Nucleated Red Blood Cells % 0.1 %
[2025-09-21 05:49] LABS: Albumin 3.7 g/dL (3.2-4.8); Alkaline Phosphatase 66 U/L (46-116); Anion Gap 11 (5-15); BUN/Creatinine Ratio 15.5 (10.0-20.0); Calcium 8.8 mg/dL (8.7-10.4); Carbon Dioxide 23 mmol/L (20-31); Glucose 95 mg/dL (74-106); Potassium 4.0 mmol/L (3.5-5.1); Sodium 145 mmol/L (136-145); Total Protein 6.4 g/dL (5.7-8.2)
[2025-09-21 05:54] LABS: Alanine Aminotransferase 9 U/L (7-40); Bilirubin, Total 0.3 mg/dL (0.2-1.0); Blood Urea Nitrogen 25 mg/dL (9-23); Chloride 111 mmol/L (98-107)
[2025-09-21] MEDS ORDERED: ANAS1TAB7 PO (09:52)
[2025-09-21] MEDS ORDERED: CARV25TA55 PO (09:52)
[2025-09-21] MEDS ORDERED: SACU1TAB PO (09:52)
[2025-09-21] MEDS ORDERED: AMLO1TAB23 PO (09:52)
[2025-09-21] MEDS: ENOXAPARIN SOD 40 MG/0.4 ML SYRINGE SC SCH (10:54)
--- NOTE | 2025-09-21 14:13 | DVHINCON2 ---
GI Consult Consult Note GI consult note Date of Consultation: 09/21/2025 Chief Complaint: Acute questionable focal wall thickening of sigmoid colon Referring Physician: Jamey MONACO H&P: 69-year-old female with past medical history of breast cancer with Mets to bone, hypertension admitted with right-sided abdominal pain. Patient at this time clarifying that it is more flank pain that she. Symptoms started after her last chemo which was a week ago at [facility]. No melena or red blood in stool. Denies nausea vomiting. Patient's last colonoscopy was 2022 which was within normal limits per patient. Patient was diagnosed with assist in her colon where a drain was placed for four months which fell out spontaneously and has been having repeat CT abdomen pelvis every six months, and at [facility] is aware of the thickening in her colon Patient admits to also drinking a lot of IV hydration fluid from [employer] and not mixing it with enough water Past Medical History: Breast cancer with Mets to bone, HTN Past Surgical History: Denies Social History: NO smoking, drinking ETOH and use of illegal drugs. Family History: Noncontributory Review of Systems: Constitutional: no fever, chill, weight loss HEENT: no eye pain, no hearing loss, no oral lesion, no scleral icterus Heart: no chest pain, no chest pressure Lung: no cough, no dyspnea with exertion Abdomen: see HPI Physical exam: General: NAD, AAOX3 Chest: lung davies clear to auscultation Heart: RRR, no murmur Abdomen: non-distended, no tenderness to palpation, +BS Labs: Labs Test 09/21/25 04:36 09/20/25 10:48 Range/Units White Blood Count 4.1 L 4.4-10.8 10^3/uL Red Blood Count 3.50 L 4.0-5.20 10^6/uL Hemoglobin 11.2 L 12.2-16.2 g/dL Hematocrit 33.3 #L 36.0-46.0 % Mean Corpuscular Volume 95.3 80.0-100.0 fL Mean Corpuscular Hemoglobin 32.0 28.0-32.0 pg Mean Corpuscular Hemoglobin Concent 33.6 32.0-36.0 g/dL Red Cell Distribution Width 14.4 H 11.8-14.3 % Platelet Count 249 140-450 10^3/uL Mean Platelet Volume 8.3 6.9-10.8 fL Neutrophils (%) (Auto) 44.6 37.0-80.0 % Lymphocytes (%) (Auto) 37.2 10.0-50.0 % Monocytes (%) (Auto) 8.4 0.0-12.0 % Eosinophils (%) (Auto) 9.4 H 0.0-7.0 % Basophils (%) (Auto) 0.4 0.0-2.0 % Neutrophils # (Auto) 1.8 1.6-8.6 10 ^3/uL Lymphocytes # (Auto) 1.5 0.4-5.4 10 ^3/uL Monocytes # (Auto) 0.3 0-1.3 10 ^3/uL Eosinophils # (Auto) 0.4 0-0.8 10 ^3/uL Basophils # (Auto) 0 0-0.2 10 ^3/uL Nucleated Red Blood Cells 0.1 % Sodium Level 145 136-145 mmol/L Potassium Level 4.0 3.5-5.1 mmol/L Chloride Level 111 H 98-107 mmol/L Carbon Dioxide Level 23 20-31 mmol/L Anion Gap 11 5-15 Blood Urea Nitrogen 25 H 9-23 mg/dL Creatinine 1.61 H 0.550-1.02 mg/dL Glomerular Filtration Rate Calc 34 >90 mL/min BUN/Creatinine Ratio 15.5 10.0-20.0 Serum Glucose 95 74-106 mg/dL Calcium Level 8.8 8.7-10.4 mg/dL Total Bilirubin 0.3 0.2-1.0 mg/dL Aspartate Amino Transferase (AST) 14 13-40 U/L Alanine Aminotransferase (ALT) 9 7-40 U/L Alkaline Phosphatase 66 46-116 U/L Total Protein 6.4 5.7-8.2 g/dL Albumin 3.7 3.2-4.8 g/dL Urine Color Light-yellow Yellow Urine Clarity Clear Clear Urine pH 5.5 5.0-9.0 Urine Specific [place] 1.016 1.001-1.035 Urine Protein Negative Negative Urine Ketones Negative Negative Urine Blood Negative Negative /uL Urine Nitrite Negative Negative Urine Bilirubin Negative Negative Urine Urobilinogen Normal Negative mg/dL Urine Leukocyte Esterase Trace Negative /uL Urine RBC None seen 0 - 4 /hpf Urine Microscopic WBC 2 0-5 /HPF Urine Squamous Epithelial Cells None seen <5 /hpf Urine Bacteria None seen None Seen /hpf Urine Glucose Normal Normal mg/dL Imaging: CT abdomen pelvis IMPRESSION: 1. No hydronephrosis or renal calculi. 2. Cholelithiasis without evidence of acute cholecystitis. 3. Questionable focal wall thickening at the sigmoid colon. Recommend follow-up with colonoscopy as an underlying mass cannot be excluded. 4. Colonic diverticulosis without evidence of diverticulitis. Assessment: Abdominal pain improving Abnormal CT imaging-patient has history of drain tube in her colon in past Cholelithiasis History of breast cancer with Mets, undergoing chemotherapy Plan: Discussed with Dr. Parekh IV antibiotic IV hydration Recommend follow-up with [facility] for further monitoring of her colon Recommend outpatient GI follow-up for colonoscopy as needed Thank you for this consult Date of Service: Sep 21, 2025 Billing Provider: VANITA ELLIOTT Common Visit Codes: CONSULT ONLY Consultation Codes: [id number] CONSULT <60MIN VANITA ELLIOTT Sep 21, 2025 14:13
--- NOTE | 2025-09-21 15:43 | DVHPN2 ---
Subjective No chest pain or abdominal pain Reviewed: H&P Changes from previous H/P or p: No Changes Eyes: No Pain, No Vision change, No Conjunctivae inflammation, No Eyelid inflammation, No Other, No Redness ENT: No Ear pain, No Ear discharge, No Nose pain, No Nose discharge, No Nose congestion, No Mouth pain, No Mouth swelling, No Throat pain, No Throat swelling, No Other Cardiovascular: No Chest Pain, No Palpitations, No Orthopnea, No Paroxysmal Noc. Dyspnea, No Edema, No Lt Headedness, No Other Respiratory: No Cough, No Dry, No Shortness of breath, No SOB with excertion, No Wheezing, No Hemoptysis, No Pleuritic Pain, No Sputum, No Other Gastrointestinal: Nausea, Vomiting, Abdominal Pain; No Diarrhea, No Constipation, No Melena, No Hematochezia, No Other Genitourinary: No Dysuria, No Frequency, No Incontinence, No Hematuria, No Retention, No Other Musculoskeletal: No other, No neck pain, No shoulder pain, No arm pain, No back pain, No hand pain, No leg pain, No foot pain Skin: No Rash, No Lesions, No Jaundice, No Bruising, No Other Objective Vitals Vital Signs Date Time Temp Pulse Resp B/P (MAP) Pulse Ox O2 Delivery O2 Flow Rate FiO2 09/21/25 09:00 98.9 79 18 101/70 (80) 96 98.9 09/20/25 23:45 Room Air* 0 21 Intake/Output Intake and Output 09/21/25 05:00 Intake Total 1000 ml Balance 1000 ml Intake Oral 0 ml IV Total 1000 ml General Appearance: Alert, Oriented X3 HEENT: Atraumatic Lungs: Clear to auscultation Cardiovascular: Regular rate, Normal S1, Normal S2 Abdomen: Normal bowel sounds Medications Current Medications Medications Dose Ordered Sig/Kedar Route Start Time Stop Time Status Last Admin Dose Admin Sodium Chloride 1,000 ml @ 70 mls/hr [id number] IV 09/20/25 13:30 09/21/25 10:54 70 MLS/HR Ondansetron HCl 4 mg Q4HP PRN IV 09/20/25 13:30 Docusate Sodium 100 mg BIDPRN PRN PO 09/20/25 13:30 Enoxaparin Sodium 40 mg DAILY SC 09/21/25 10:00 09/21/25 10:54 40 MG Nitroglycerin 0.4 mg Q5MINP PRN SL 09/20/25 13:30 Hydromorphone HCl 0.5 mg Q4HPRN PRN IV 09/20/25 21:45 09/21/25 01:05 0.5 MG Laboratory Results Laboratory Tests 09/21/25 04:36 Chemistry Test 09/21/25 04:36 Albumin 3.7 g/dL (3.2-4.8) Calcium Level 8.8 mg/dL (8.7-10.4) Total Protein 6.4 g/dL (5.7-8.2) LFT Test 09/21/25 04:36 Alanine Aminotransferase (ALT) 9 U/L (7-40) Alkaline Phosphatase 66 U/L (46-116) Aspartate Amino Transferase (AST) 14 U/L (13-40) Total Bilirubin 0.3 mg/dL (0.2-1.0) Urinalysis Test 09/20/25 10:48 Urine Color Light-yellow (Yellow) Urine Clarity Clear (Clear) Urine pH 5.5 (5.0-9.0) Urine Specific [place] 1.016 (1.001-1.035) Urine Protein Negative (Negative) Urine Ketones Negative (Negative) Urine Blood Negative /uL (Negative) Urine Nitrite Negative (Negative) Urine Bilirubin Negative (Negative) Urine Urobilinogen Normal mg/dL (Negative) Urine Leukocyte Esterase Trace /uL (Negative) Urine RBC None seen /hpf (0 - 4) Urine Microscopic WBC 2 /HPF (0-5) Urine Squamous Epithelial Cells None seen /hpf (<5) Urine Bacteria None seen /hpf (None Seen) Urine Glucose Normal mg/dL (Normal) Assessment/Plan Assessment/Plan 69-year-old female with metastatic breast cancer and right-sided abdominal pain, admitted for pain control and further workup of possible colonic mass vs. post- chemo complications. acute Right lower quadrant abdominal pain, etiology unclear Pain likely multifactorial: chemo-related, musculoskeletal vs. colonic pathology CT abdomen shows diverticulosis, no diverticulitis, no hydronephrosis Pain control with scheduled Tylenol and PRN narcotics if needed morphine GI consult for colonoscopy follow-up due to focal wall thickening Monitor vitals and abdominal exam for progression acute Colonic wall thickening on imaging possible underlying mass CT impression: focal sigmoid wall thickening, mass not excluded GI follow-up for outpatient colonoscopy Consider tumor markers if not recently done History of metastatic breast cancer to bone Receiving chemotherapy at [facility] Last dose was , every 3 weeks Continue current oncology care coordination Monitor for neutropenia or treatment-related complications acute jaziel cont iv hydration for now Creat improving 1.78>1.6 Hypertension Continue home antihypertensives as tolerated Monitor blood pressure during admission chronic problems Breast cancer with bone metastases Hypertension History of colon pathology per pt Diverticulosis FEN / PPx Fluids: Maintain IV hydration Electrolytes: Monitor CMP Nutrition: Regular diet, advance as tolerated DVT Prophylaxis: SCDs GI Prophylaxis: PPI for stress ulcer prophylaxis Plan discussed with: Patient Date of Service: Sep 21, 2025 Billing Provider: DAVID POLLACK MD Common Visit Codes: [id number] INP/OBS CARE(HIGH) DAVID POLLACK MD Sep 21, 2025 15:43
[2025-09-21] MEDS ORDERED: hydrALAZINE HCL 20 MG/ML VL IV PRN (18:00)
[2025-09-21] MEDS: hydrALAZINE HCL 20 MG/ML VL IV PRN (18:16)
[2025-09-21] MEDS: CARVEDILOL 12.5 MG TAB PO SCH (21:17)
[2025-09-22 01:00] VITALS: BP 148/77; PULSE 63; RESP 16; TEMP 98; O2SAT 97
[2025-09-22 05:00] VITALS: BP 158/84; PULSE 70; RESP 17; TEMP 98.6; O2SAT 99
[2025-09-22 08:00] VITALS: RESP 16; O2SAT 94
[2025-09-22 09:00] VITALS: BP 160/90; PULSE 74; RESP 16; TEMP 98.2; O2SAT 96
[2025-09-22] MEDS: SACUBITRIL-VALSARTAN 24mg/26mg TAB PO SCH (10:17)
[2025-09-22 12:22] LABS: Potassium 4.1 mmol/L (3.5-5.1)
[2025-09-22 12:23] LABS: Anion Gap 11 (5-15); Calcium 9.0 mg/dL (8.7-10.4); Carbon Dioxide 25 mmol/L (20-31)
[2025-09-22 12:24] LABS: Chloride 109 mmol/L (98-107); Sodium 145 mmol/L (136-145)
[2025-09-22 12:28] LABS: BUN/Creatinine Ratio 12.7 (10.0-20.0); Blood Urea Nitrogen 17 mg/dL (9-23); Glucose 85 mg/dL (74-106)
--- NOTE | 2025-09-22 14:14 | DVHDS2 ---
Discharge Summary Date of Admission Sep 20, 2025 at 13:19 Date of Discharge: Sep 22, 2025 Labs/Diagnostic Data: Laboratory Results Test 09/22/25 11:52 09/21/25 04:36 09/20/25 10:48 Sodium Level 145 mmol/L (136-145) Potassium Level 4.1 mmol/L (3.5-5.1) Chloride Level 109 mmol/L (98-107) Carbon Dioxide Level 25 mmol/L (20-31) Anion Gap 11 (5-15) Blood Urea Nitrogen 17 mg/dL (9-23) Creatinine 1.34 mg/dL (0.550-1.02) Glomerular Filtration Rate Calc 43 mL/min (>90) BUN/Creatinine Ratio 12.7 (10.0-20.0) Serum Glucose 85 mg/dL (74-106) Calcium Level 9.0 mg/dL (8.7-10.4) White Blood Count 4.1 10^3/uL (4.4-10.8) Red Blood Count 3.50 10^6/uL (4.0-5.20) Hemoglobin 11.2 g/dL (12.2-16.2) Hematocrit 33.3 % (36.0-46.0) Mean Corpuscular Volume 95.3 fL (80.0-100.0) Mean Corpuscular Hemoglobin 32.0 pg (28.0-32.0) Mean Corpuscular Hemoglobin Concent 33.6 g/dL (32.0-36.0) Red Cell Distribution Width 14.4 % (11.8-14.3) Platelet Count 249 10^3/uL (140-450) Mean Platelet Volume 8.3 fL (6.9-10.8) Neutrophils (%) (Auto) 44.6 % (37.0-80.0) Lymphocytes (%) (Auto) 37.2 % (10.0-50.0) Monocytes (%) (Auto) 8.4 % (0.0-12.0) Eosinophils (%) (Auto) 9.4 % (0.0-7.0) Basophils (%) (Auto) 0.4 % (0.0-2.0) Neutrophils # (Auto) 1.8 10 ^3/uL (1.6-8.6) Lymphocytes # (Auto) 1.5 10 ^3/uL (0.4-5.4) Monocytes # (Auto) 0.3 10 ^3/uL (0-1.3) Eosinophils # (Auto) 0.4 10 ^3/uL (0-0.8) Basophils # (Auto) 0 10 ^3/uL (0-0.2) Nucleated Red Blood Cells 0.1 % Total Bilirubin 0.3 mg/dL (0.2-1.0) Aspartate Amino Transferase (AST) 14 U/L (13-40) Alanine Aminotransferase (ALT) 9 U/L (7-40) Alkaline Phosphatase 66 U/L (46-116) Total Protein 6.4 g/dL (5.7-8.2) Albumin 3.7 g/dL (3.2-4.8) Urine Color Light-yellow (Yellow) Urine Clarity Clear (Clear) Urine pH 5.5 (5.0-9.0) Urine Specific [place] 1.016 (1.001-1.035) Urine Protein Negative (Negative) Urine Ketones Negative (Negative) Urine Blood Negative /uL (Negative) Urine Nitrite Negative (Negative) Urine Bilirubin Negative (Negative) Urine Urobilinogen Normal mg/dL (Negative) Urine Leukocyte Esterase Trace /uL (Negative) Urine RBC None seen /hpf (0 - 4) Urine Microscopic WBC 2 /HPF (0-5) Urine Squamous Epithelial Cells None seen /hpf (<5) Urine Bacteria None seen /hpf (None Seen) Urine Glucose Normal mg/dL (Normal) Other Laboratory Tests 09/22/25 11:52 09/21/25 04:36 Brief Hx & Hospital Course: 69-year-old female with a past medical history of breast cancer with metastasis to bone, hypertension, and no prior surgical history presents with severe right- sided abdominal pain. She reports being followed at [facility] and received her last cycle of chemotherapy this past , administered every three weeks. She states she was advised by her nurse to take Tylenol and present to the ER if her pain did not improve within two days. She followed this advice, but the pain worsened overnight, prompting her visit. She denies chest pain, shortness of breath, hematuria, rectal pain, or rectal bleeding. She recalls having a prior workup at [place] in 2022, which was reportedly negative for cancer, despite having a tumor on the left side of her abdomen that fell out spontaneously. She also has a history of abnormal colonic findings including focal wall thickening and sigmoid abnormalities, but a previous colonoscopy at [place] was reportedly non-conclusive. In the ED, CT abdomen/pelvis showed no hydronephrosis, gallstones without cholecystitis, and diverticulosis without evidence of diverticulitis. There was questionable focal wall thickening at the sigmoid colon with recommendation for follow-up colonoscopy to rule out an underlying mass patient states she had a follow up for this problem in the past in 2022 they found nothing concerning. When evaluating patient's labs and imaging CBC is unremarkable creatinine was found to be 1.78 otherwise BNP unremarkable UA was negative we will admit to medicine for further workup and care Creat got better with IVF 1.7>1.3 Seen by GI and no need for colonoscopy and can follow with [facility] Condition at Discharge: Good Final Diagnosis/Problems List acute kidney injury due to vasorenal nephropathy Discharge Disposition: Home Discharge Instruct/Medications Diet: Regular Activity: No Restrictions, As Tolerated Follow Up/Referral: PCP in 7 days Medications: home medications Scheduled Amlodipine Besylate (Amlodipine Besylate), 1 TAB PO DAILY, (Reported) Anastrozole (Anastrozole), 1 TAB PO DAILY, (Reported) Carvedilol (Carvedilol), 1 TAB PO BID, (Reported) Miscellaneous Medications Sacubitril-Valsartan (Entresto 24-26 mg), 1 TAB PO, (Reported) Discharge Statement: "Patient was advised to return to the ER or call 911 if any headaches, dizziness, shortness of breath, chest pain, abdominal pain, bleeding, fevers, or worsening of medical condition. Patient was counseled about treatment plan, medications, possible side effects, patientverbalized understanding. All questions were answered to the best of my ability. This discharge took greater then 30 minutes in planning, reviewing documentation, counseling the patient, and discussing with other team members." ASSESSMENT ASSESSMENT Assessment acute kidney injury due to vasorenal nephropathy Date of Service: Sep 22, 2025 Billing Provider: DAVID POLLACK MD Common Visit Codes: [id number] DISCH DAY >30min DAVID POLLACK MD Sep 22, 2025 14:14
[2025-09-22 14:16] VITALS: BP 112/67; PULSE 58; RESP 16; TEMP 98.2; O2SAT 96
--- NOTE | 2025-09-22 22:45 | DVHPN2 ---
Progress Note - Dictate Date Seen: Sep 22, 2025 (Late entryPatient seen at bedside at 10:00 a.m.) Medical Necessity Reason Pt with a Central, PICC or Fol: No Subjective No new complaints, patient resting comfortably Patient is usually followed up at [facility] She has a history of metastatic breast cancer She had a negative colonoscopy in 2022 Renal function is improving vital signs Vital Sign Date Time Temp Pulse Resp B/P (MAP) Pulse Ox O2 Delivery O2 Flow Rate FiO2 09/22/25 14:16 98.2 58 16 96 09/22/25 11:17 155/50 09/22/25 08:00 Room Air* 0 21 Total Intake and Output 09/21/25 09/21/25 09/22/25 15:00 23:00 07:00 Intake Total 485 ml 850 ml Balance 485 ml 850 ml objective General: NAD, AAOX3 Chest: lung davies clear to auscultation Heart: RRR, no murmur Abdomen: non-distended, no tenderness to palpation, +BS laboratory and microbiology Laboratory Tests 09/22/25 11:52 09/21/25 04:36 Test 09/22/25 11:52 Range/Units Serum Glucose 85 74-106 mg/dL Problems(with codes): (1) Status post chemotherapy (2) Cholelithiasis (3) Intractable abdominal pain (4) Abnormal finding on GI tract imaging Prognosis Plan Continue supportive care, advance diet as tolerated Patient will follow up at [facility] for further management Review records of last colonoscopy from [facility] and discuss with them about timing for repeat colonoscopy Check CEA level Plan discussed with: Patient AMY SHAH MD Sep 22, 2025 22:45
== END 2025-09-22 14:50 | disposition home or self-care (01) | DRG 444 ==
LOC: ER 09:27 → OVERFLOW 13:19 → EAST 23:16 → TELE-EAST 09-21 02:45
PROVIDERS: ADMIT Hospitalist; ATTEND Hospitalist
DX: K80.20 Calculus of gallbladder without cholecystitis without obstruction (principal); N17.0 Acute kidney failure with tubular necrosis; C79.51 Secondary malignant neoplasm of bone; I10 Essential (primary) hypertension; K57.30 Diverticulosis of large intestine without perforation or abscess without bleeding; Z85.3 Personal history of malignant neoplasm of breast; Z92.21 Personal history of antineoplastic chemotherapy
CPT/HCPCS: 36415; 74176; 80048; 80053; 81001; 85025; 96374; G0378; J1885; J2405